=== PATIENT | female | born 1970 | race Caucasian/White ===

== ENCOUNTER 2021-04-07 15:36 | Emergency (ER) | payer OTHER ==
[~2021-04-07] VITALS: Ht 172.7 cm; Wt 109.1 kg
[2021-04-07 15:47] VITALS: BP 142/84
--- NOTE | 2021-04-07 16:16 | NUR ---
PATIENT WALKED BACK FROM THE LOBBY WITH CHIEF C/O INTERMITTENT RIGHT EYE PAIN WITH "LOADS OF FLOATERS." PER PATIENT SYMPTOMS STARTED 10 DAYS AGO, DENIES INJURY OR TRAUMA. ALSO REPORTS CLOUDY VISION IN RIGHT EYE. PATIENT A&O, NADN, CALL LIGHT WITHIN REACH.
--- NOTE | 2021-04-07 17:40 | NUR ---
ERMD AT BEDSIDE FOR EVALUATION.
--- NOTE | 2021-04-07 18:44 | NUR ---
Patient given discharge instructions and they have confirmed that they understand the instructions. Patient ambulatory with steady gait. NAD, all questions answered appropriately, denies additional needs at this time. No personal belongings left in room after discharge.
== END 2021-04-07 18:44 | disposition home or self-care (01) ==
LOC: ED 17:20
DX: H54.61 Unqualified visual loss, right eye, normal vision left eye (principal)
CPT/HCPCS: 99282; 99284